=== PATIENT | male | born 1990 | race Caucasian/White ===

== ENCOUNTER 2020-10-02 14:25 | Outpatient (REF) | payer MEDICAID, SELFPAY ==
[2020-10-02 15:38] LABS: COVID-19 Test Negative (Negative)
== END 2020-10-02 14:26 | disposition home or self-care (01) ==
LOC: HO.LAB 14:25
PROVIDERS: Visit Provider Internal Medicine
DX: Z20.822 Contact with and (suspected) exposure to COVID-19 (principal)
CPT/HCPCS: 36415; 87635; C9803

== ENCOUNTER 2020-12-09 13:13 | Emergency (ER) | payer OTHER, MEDICAID, SELFPAY ==
[2020-12-09 13:17] VITALS: BP 176/81; PULSE 87; RESP 16; TEMP 36.5; O2SAT 97; BMI 28.7
--- NOTE | 2020-12-09 14:56 | ED_ITS ---
HPI - Back Pain/Injury General Chief Complaint: Back Pain/Injury Stated Complaint: back pain Time Seen by Provider: 12/09/20 14:44 Source: patient Mode of arrival: ambulatory History of Present Illness HPI Narrative: 30-year-old male with no significant past medical history presenting to the ED complaining of acute onset right-sided low back pain radiating down right buttock x3 days s/p heavy lifting at work. Admits to taking Tylenol at home without relief. Denies direct injury/trauma or falls. Denies associated numbness, tingling, weakness, urinary incontinence or retention MD elicited complaint: back pain and back injury Related Data Previous Rx's Medication Instructions Recorded acetaminophen [Tylenol Extra 500 mg PO Q6H PRN #20 tab 12/09/20 Strength] cyclobenzaprine 5 mg PO Q8H PRN 5 Days #14 tab 12/09/20 lidocaine [Lidoderm] 1 patch TOPICAL DAILY PRN #30 ea 12/09/20 MDD remove after 12 hours Allergies Allergy/AdvReac Type Severity Reaction Status Date / Time aspirin [ASA] Allergy Mild REDNESS, Unverified 03/07/20 19:33 SWELLING Review of Systems Review of Systems: Constitutional: No Fever, No Chills Cardiovascular: No Chest Pain, No SOB Genitourinary: No Urinary Incontinence/retention Musculoskeletal: + joint pain, No Myalgias, No Joint Swelling Skin: No Skin Lesions, No rash Neuro: No Weakness, No Numbness, No Paresthesias Yes all other systems are reviewed and are negative Neurologic: Denies Sensory deficit (Neuro) FORMERLY [facility], [facility]–1983 Past Medical History Attestation statement: The following information was validated with the patient. Medical History (Updated 12/09/20 @ 14:56 by DELIA Jones) No known health problems Social History Social History Advance Directives: Yes Advance Directives Information Provided: Yes Advance Directives on File: No Physical Exam Vital Signs: Vital Signs: Last Vital Signs Temp 97.7 F 12/09/20 13:17 Pulse 87 12/09/20 13:17 Resp 16 12/09/20 13:17 BP 176/81 H 12/09/20 13:17 Pulse Ox 97 12/09/20 13:17 Body Mass Index 28.7 Const: General: cooperative and healthy appearing Orientation/consciousness: patient oriented x3 Limitations: no limitations HENMT: Head: Yes normal to inspection Ears: hearing grossly normal bilater ally General nose exam: Normal external nose present Face and sinus: Yes normal facial exam Eyes: General: appearance normal, both eyes and all related structures EOM: EOMs intact bilaterally Neck: Neck: Yes normal visual inspection and Yes no meningeal signs Resp: Effort & Inspection: normal respiratory effort Cardio: Rate: regular rate Back/Spine/Pelvis: Other: No midline thoracic/lumbar spinous tenderness or step-off/deformity Skin: Rashes: no rashes Wounds: no wounds Neuro: Other: No saddle anesthesia. Ambulating with steady gait. Strength intact throughout General: patient oriented x3, gait normal, tone normal, moves all extremities and no meningeal signs Gait exam (Neuro): Normal gait present Motor exam (neuro): 5/5 motor strength present throughout Sensory Exam: No Sensory deficit (Neuro) Extrem: General: Yes normal to inspection MDM - Back Pain/Injury MDM Narrative Medical decision making narrative: 30-year-old male with no significant past medical history presenting to the ED complaining of acute onset right-sided low back pain radiating down right buttock x3 days s/p heavy lifting at work. On exam vital signs stable, NAD, well appearing, no midline spinous tenderness throughout, no red flag symptoms, no saddle anesthesia, ambulating with steady gait. Likely MSK pain/strain or muscle spasming. Low concern for cauda equina, cord compression or fracture/dislocation. Discharge Plan Discharge Clinical Impression: Lumbar radiculopathy, Strain of lumbar region Patient Disposition: Home, Self-Care Instructions: Acute Low Back Pain (ED) Additional Instructions: Your pain is likely musculoskeletal Flexeril is a muscle relaxer, take at night as it makes you drowsy, do not drive, drink alcohol, or operate machinery while taking it Lidoderm patches are numbing patches, apply to painful area In addition take Tylenol at home If symptoms persist or worsen, pain becomes unbearable, you developed urinary retention or incontinence, or weakness return to the ED Es probable que corbett dolor sea musculoesquel?becky Flexeril es un relajante muscular, t?clarke por la noche ya que le produce somnolencia, no conduzca, no grace alcohol ni utilice maquinaria mientras lo t lamine. Los parches de Lidoderm son parches que adormecen, se aplican al ?vira dolorida Adem?s, tome Tylenol en casa. Si los s?ntomas persisten o empeoran, el dolor se vuelve insoportable, desarroll? retenci?n urinaria o incontinencia o debilidad, regrese al servicio de urgencias Prescriptions: New acetaminophen [Tylenol Extra Strength] 500 mg tablet 500 mg PO Q6H PRN (Reason: pain or fever) Qty: 20 RF: 0 lidocaine [Lidoderm] 5 % adhesive patch,medicated 1 patch topical DAILY MDD remove after 12 hours PRN (Reason: pain) Qty: 30 RF: 0 cyclobenzaprine 5 mg tablet 5 mg PO Q8H PRN (Reason: pain (scale score 7-10)) 5 Days Qty: 14 RF: 0 Referrals: Rowena Roy MD [Primary Care Provider] - 2 days Stand Alone Forms: Work/School Release
== END 2020-12-09 15:23 | disposition home or self-care (01) ==
PROVIDERS: Emergency Provider Emergency Medicine; PCP Family Medicine
DX: S39.012A Strain of muscle, fascia and tendon of lower back, initial encounter (principal); M54.16 Radiculopathy, lumbar region; X50.0XXA Overexertion from strenuous movement or load, initial encounter; Y93.9 Activity, unspecified; Y92.89 Other specified places as the place of occurrence of the external cause; Y99.0 Civilian activity done for income or pay
CPT/HCPCS: 99283

== ENCOUNTER 2021-03-03 10:12 | Outpatient (REF) | payer MEDICAID, SELFPAY | END 2021-03-03 10:13 | disposition home or self-care (01) | LOC: HO.LAB 10:12 | PROVIDERS: PCP Family Medicine; Visit Provider Internal Medicine | DX: Z20.822 Contact with and (suspected) exposure to COVID-19 (principal) | CPT/HCPCS: C9803; U0003; U0005 ==

== ENCOUNTER 2021-06-17 08:31 | Outpatient (REF) | payer MEDICAID, SELFPAY | END 2021-06-17 08:32 | disposition home or self-care (01) | LOC: HO.LAB 08:31 | PROVIDERS: Visit Provider Internal Medicine | DX: Z20.822 Contact with and (suspected) exposure to COVID-19 (principal) | CPT/HCPCS: C9803; U0003; U0005 ==

== ENCOUNTER 2021-08-13 08:10 | Emergency (ER) | payer MEDICAID, SELFPAY ==
[2021-08-13 08:28] VITALS: BP 138/90; PULSE 85; RESP 18; TEMP 36.4; O2SAT 98; BMI 32.1
--- NOTE | 2021-08-13 09:29 | ED.NECK ---
HPI - Neck Pain/Injury General Chief Complaint: Neck Pain/Injury Stated Complaint: Upper back pain/shoulder pain Time Seen by Provider: 08/13/21 09:22 Source: patient Mode of arrival: ambulatory Limitations: language barrier (Pashto-speaking) History of Present Illness HPI Narrative: 31-year-old male presenting to the ED with complaints of a traumatic left-sided neck pain that he woke up with this morning. He denies any other symptoms related to this. He denies any IV drug usage. He denies any recent falls or trauma. MD complaint: neck pain Onset (ago): hour(s) Place: home Radiation: left lateral Severity: moderate and constant Quality: aching and spasming Duration: constant Relieving factors: none Exacerbating factors: movement of neck Context: unknown Associated symptoms: none Treatments prior to arrival: none Related Data Previous Rx's Medication Instructions Recorded acetaminophen 500 mg tablet 500 mg PO Q6H PRN #20 tab 12/09/20 (Tylenol Extra Strength) cyclobenzaprine 5 mg tablet 5 mg PO Q8H PRN 5 Days #14 tab 12/09/20 lidocaine 5 % topical patch 1 patch TOPICAL DAILY PRN #30 ea 12/09/20 (Lidoderm) MDD remove after 12 hours acetaminophen 500 mg tablet 1,000 mg PO Q6H PRN #14 tab 08/13/21 (Tylenol Extra Strength) diazepam 10 mg tablet (Valium) 10 mg PO Q8H PRN #14 tab 08/13/21 lidocaine HCl 4 % topical cream 1 appl TOPICAL BID PRN #120 g 08/13/21 (Aspercreme (lidocaine HCl)) Allergies Allergy/AdvReac Type Severity Reaction Status Date / Time aspirin [ASA] Allergy Mild REDNESS, Unverified 03/07/20 19:33 SWELLING Review of Systems Review of Systems: Constitutional : No trauma, No Weight loss, No Fever, No Chills, ENT/Mouth : No Hearing loss, No Ear Pain, No Nasal Congestion, No Sinus Pain, No Hoarseness, No sore throat, No Rhinorrhea, No Swallowing Difficulty Cardiovascular : No Chest Pain, No SOB Respiratory : No Cough, No Dyspnea Gastrointestinal : No Nausea, No Vomiting, No Diarrhea, No abdominal Pain, No Hematochezia, No Melena Genitourinary : No Dysuria, No Urinary Frequency, No Hematuria, No Urinary or Bowel Incontinence/retention Musculoskeletal : + Neck pain, No Back pain, No joint stiffness, No joint swelling Skin : No Skin Lesions, No rash or signs of infection Neuro : nO Tingling to b/l arms/legs, No Weakness, No radiation, No Numbness, No headache, no loss of bowel or bladder incontinence, no saddle anesthesia Denies history of IV drug usage. Yes all other systems are reviewed and are negative [facility] Past Medical History Attestation statement: The following information was validated with the patient. Medical History No known health problems Social History Social History Advance Directives: No Advance Directives Information Provided: No Physical Exam Vital Signs: Vital Signs: Last Vital Signs Temp 97.5 F 08/13/21 08:28 Pulse 85 08/13/21 08:28 Resp 18 08/13/21 08:28 BP 138/90 H 08/13/21 08:28 Pulse Ox 98 08/13/21 08:28 BMI result Body Mass Index 32.1 vital signs have been reviewed as normal and appeared to be correct. Blood pressure normal. Heart rate normal. Respiration rate normal. Temperature normal. Oxygen saturation normal. Appearance: Alert. Oriented X3. No acute distress. Head: Normal external exam. Normocephalic. Atraumatic. Eyes: PERRLA. EOMI. Conjunctiva and sclera normal. Eyelids normal. ENT: Pharynx normal. Uvula midline. Moist mucous membranes. No trismus noted. No drooling noted. No muffled voice noted. Neck: Normal inspection. Neck supple. FROM. No adenopathy. Thyroid Normal. Trachea midline. No meningeal signs. No neck mass noted. Tender to palpation of left paracervical musculature. No mid-cervical tenderness. No step-offs or deformities noted. Patient neuro intact bilaterally and distally on all 4 extremities. Reflexes intact bilaterally and distally in all 4 extremities. No rashes/lesion/induration/fluctuance or signs of infection noted. No edema noted. CVS: Normal heart rate and rhythm. Heart sound normal. No murmurs noted. Pulses normal throughout. Respiratory: No respiratory distress. Painless inspiration. Breath sounds normal. No wheezes/rales/rhonchi noted. Chest nontender. No accessory muscle usage noted or decreased air movement noted. Back: Full range of motion noted. No obvious deformities, or edema. Full ROM in back and lower extremities. Skin: Skin warm and dry. Normal skin color. Normal skin turgor. No rashes/lesions/lacerations noted. Extremities: Extremities exhibit normal range of motion. Extremities nontender. Neuro: Oriented X 3. No motor deficit. No sensory deficit. Reflexes normal. Normal steady gait. Course Course Course Narrative: Pt c likely muscular pain, but could be herniated disc. Neuro exam shows no deficits. Not c/w vascular etiology, perivertebral / other soft tissue neck / airway infection, or spinal fx / process. Imaging not currently indicated. DC c meds and f/u patient understands agrees with this plan. MDM - Neck Pain/Injury Medical Records Attestation: I reviewed the patient's medical records. Discharge Plan Discharge Clinical Impression: Strain of neck muscle, Torticollis Patient Disposition: Home, Self-Care Instructions: Cervical Strain (DC) Prescriptions: New diazepam [Valium] 10 mg tablet 10 mg PO Q8H PRN (Reason: muscle spasm) Qty: 14 0RF acetaminophen [Tylenol Extra Strength] 500 mg tablet 1,000 mg PO Q6H PRN (Reason: pain) Qty: 14 0RF lidocaine HCl [Aspercreme (lidocaine HCl)] 4 % cream 1 appl topical BID PRN (Reason: pain) Qty: 120 0RF No Action acetaminophen [Tylenol Extra Strength] 500 mg tablet 500 mg PO Q6H PRN (Reason: pain or fever) Qty: 20 0RF lidocaine [Lidoderm] 5 % adhesive patch,medicated 1 patch topical DAILY MDD remove after 12 hours PRN (Reason: pain) Qty: 30 0RF Rx Instructions: leave on most painful area for up to 12 hrs cyclobenzaprine 5 mg tablet 5 mg PO Q8H PRN (Reason: pain (scale score 7-10)) 5 Days Qty: 14 0RF Referrals: Rowena Roy MD [Primary Care Provider] - 2 days Stand Alone Forms: Work/School Release Print Language: Pashto
== END 2021-08-13 09:45 | disposition home or self-care (01) ==
PROVIDERS: Emergency Provider Emergency Medicine; PCP Family Medicine
DX: S16.1XXA Strain of muscle, fascia and tendon at neck level, initial encounter (principal); X50.1XXA Overexertion from prolonged static or awkward postures, initial encounter; M43.6 Torticollis; Y93.84 Activity, sleeping; Y92.013 Bedroom of single-family (private) house as the place of occurrence of the external cause; Y99.9 Unspecified external cause status
CPT/HCPCS: 99283

== ENCOUNTER 2021-09-16 12:19 | Emergency (ER) | payer MEDICAID, SELFPAY ==
[2021-09-16 14:08] VITALS: BP 152/80; PULSE 80; RESP 18; TEMP 36.6; O2SAT 99; BMI 30.4
--- NOTE | 2021-09-16 15:37 | ED.URI ---
HPI - URI/Sore Throat General Chief Complaint: Headache Stated Complaint: headaches/throat pain/congestion Time Seen by Provider: 09/16/21 15:30 Source: patient Mode of arrival: ambulatory Limitations: language barrier (Ethiopian-speaking spanish medical interpreter utilized) History of Present Illness HPI Narrative: Patient is a 31-year-old male no significant past medical history apart he presents to the emergency department for evaluation of diffuse headache, sinus pressure, nasal congestion, and sore throat x2 days. Denies any contacts. Denies known exposure to COVID-19. He has been vaccinated x2 for COVID-19. Denies fevers, chills, ear pain, cough, shortness of breath, chest pain, palpitations, nausea, vomiting, abdominal pain. Related Data Previous Rx's Medication Instructions Recorded acetaminophen 500 mg tablet 500 mg PO Q6H PRN #20 tab 12/09/20 (Tylenol Extra Strength) cyclobenzaprine 5 mg tablet 5 mg PO Q8H PRN 5 Days #14 tab 12/09/20 lidocaine 5 % topical patch 1 patch TOPICAL DAILY PRN #30 ea 12/09/20 (Lidoderm) MDD remove after 12 hours acetaminophen 500 mg tablet 1,000 mg PO Q6H PRN #14 tab 08/13/21 (Tylenol Extra Strength) diazepam 10 mg tablet (Valium) 10 mg PO Q8H PRN #14 tab 08/13/21 lidocaine HCl 4 % topical cream 1 appl TOPICAL BID PRN #120 g 08/13/21 (Aspercreme (lidocaine HCl)) amoxicillin 500 mg capsule 500 mg PO Q12H 10 Days #20 cap 09/16/21 amoxicillin 500 mg capsule 500 mg PO Q12H 10 Days #20 cap 09/16/21 Allergies Allergy/AdvReac Type Severity Reaction Status Date / Time aspirin [ASA] Allergy Mild REDNESS, Verified 09/16/21 17:30 SWELLING Review of Systems Review of Systems: Constitutional: No weight loss, fever, chills, weakness or fatigue. HEENT: No visual loss, blurred vision, double vision or yellow sclera. Positive nasal congestion, positive sore throat. Skin: No rash or itching. Cardiovascular: No chest pain, chest pressure or chest discomfort. No palpitations or pedal edema. Respiratory: No shortness of breath, cough or sputum production. Gastrointestinal: No anorexia, nausea, vomiting or diarrhea. No abdominal pain. Genitourinary: No burning micturition. No urinary frequency or incontinence. Neurologic: Positive headache. No dizziness, syncope, unilateral weakness. Musculoskeletal: No muscle pain, back pain, joint pain or stiffness. Hematologic: No bleeding or bruising. Lymphatics: No enlarged lymph nodes. Yes all other systems are reviewed and are negative PMFSH Past Medical History Attestation statement: The following information was validated with the patient. Source: old records reviewed Medical History No known health problems Social History Social History Advance Directives: No Advance Directives Information Provided: No Physical Exam Vital Signs: Vital Signs: Last Vital Signs Temp 97.8 F 09/16/21 14:08 Pulse 80 09/16/21 14:08 Resp 18 09/16/21 14:08 BP 152/80 H 09/16/21 14:08 Pulse Ox 99 09/16/21 14:08 BMI result Body Mass Index 30.4 Vital signs have been reviewed and appeared to be correct. Blood pressure mildly elevated 152/80 Heart rate normal.? Respiration rate normal. Temperature normal.? Oxygen saturation normal. Appearance: Alert.?Oriented to person, place and time. No acute distress.?Normal affect. Eyes: Pupils equal, round and reactive to light.? ENT: EAC clear bilaterally. TM normal. Tonsillar hypertrophy 3+ bilaterally, pharynx injected, no exudate, uvula midline, no trismus, no hoarseness of voice Neck: Normal inspection.? Neck supple.??No adenopathy. Thyroid normal. CVS: Heart sounds normal. Normal heart rate and rhythm.? Pulses normal.?? Respiratory: No respiratory distress.? Lung sounds clear to auscultation bilaterally?? Abdomen: Soft and non-tender. ? Skin: Skin warm and dry.? Normal skin color.? ?? Extremities: No lower extremity edema.? Neuro: Moves all extremities spontaneously. Sensation intact bilaterally. No focal neuro deficits. Ambulates with normal steady gait. Course Course Course Narrative: Patient is a 31-year-old male being evaluated for upper respiratory symptoms. He is well appearing, non toxic, afebrile, no tachycardia. This seemed to have some discomfort, notable when swallowing. He is managing secretions appropriately, no apparent respiratory distress. Not consistent with peritonsillar abscess, bronchitis, pneumonia, otitis media. Will treat with Tylenol for pain. COVID-19 testing negative, influenza testing negative, Strep Grp A testing negative. 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 Patient is agreeable. MDM - URI/Sore Throat Medical Records Attestation: I reviewed the patient's medical records. Lab Data Attestation: I reviewed the patient's lab results. Labs: Lab Results 09/16/21 09/16/21 09/16/21 Range/Units 16:04 16:04 16:05 COVID-19 (MELONIE) Negative (Negative) COVID-19 Clin Com See Note Influenza Type A (LEONEL) Negative (Negative) Influenza Type B (LEONEL) Negative (Negative) Influenza A & B Note See Note S. pyogenes GrpA LEONLE Negative (Negative) Discharge Plan Discharge Clinical Impression: Pharyngitis Patient Disposition: Home, Self-Care Instructions: Pharyngitis (ED) Additional Instructions: Please complete the entire course of the amoxicillin prescribed. Please return for any return to the emergency department any new or worsening symptoms or concerns. Please contact your primary care provider to schedule a follow-up visit within 1 week. Prescriptions: New amoxicillin 500 mg capsule 500 mg PO Q12H 10 Days Qty: 20 0RF amoxicillin 500 mg capsule 500 mg PO Q12H 10 Days Qty: 20 0RF No Action acetaminophen [Tylenol Extra Strength] 500 mg tablet 500 mg PO Q6H PRN (Reason: pain or fever) Qty: 20 0RF lidocaine [Lidoderm] 5 % adhesive patch,medicated 1 patch topical DAILY MDD remove after 12 hours PRN (Reason: pain) Qty: 30 0RF Rx Instructions: leave on most painful area for up to 12 hrs cyclobenzaprine 5 mg tablet 5 mg PO Q8H PRN (Reason: pain (scale score 7-10)) 5 Days Qty: 14 0RF diazepam [Valium] 10 mg tablet 10 mg PO Q8H PRN (Reason: muscle spasm) Qty: 14 0RF acetaminophen [Tylenol Extra Strength] 500 mg tablet 1,000 mg PO Q6H PRN (Reason: pain) Qty: 14 0RF lidocaine HCl [Aspercreme (lidocaine HCl)] 4 % cream 1 appl topical BID PRN (Reason: pain) Qty: 120 0RF Stand Alone Forms: Work/School Release Interventions: ED Discharge Assessment Last Done: 09/16/21 17:30 Discharge Date/Time: 09/16/21 17:35
[2021-09-16] MEDS: Acetaminophen 325 MG TABLET 975 MG PO (15:46)
[2021-09-16 16:24] LABS: Strep A Nucleic Acid Negative (Negative)
[2021-09-16 16:26] LABS: IDNOW Serial# 08D9AD1C; Influenza A Negative (Negative); Influenza B2 Negative (Negative)
[2021-09-16 16:30] LABS: COVID-19 Test Negative (Negative)
== END 2021-09-16 17:35 | disposition home or self-care (01) ==
PROVIDERS: Nurse Practitioner Family; Emergency Provider Emergency Medicine
DX: J02.9 Acute pharyngitis, unspecified (principal); R51.9 Headache, unspecified; Z79.899 Other long term (current) drug therapy; Z20.822 Contact with and (suspected) exposure to COVID-19
CPT/HCPCS: 87502; 87635; 87651; 99283

== ENCOUNTER 2022-01-26 07:52 | Outpatient (REF) | payer MEDICAID, SELFPAY ==
--- NOTE | ~2022-01-26 | XR_ITS ---
EXAMINATION: XR SHOULDER, RIGHT CLINICAL INFORMATION: Pain COMPARISON: None TECHNIQUE: 3 views of the right shoulder. FINDINGS: The bones and soft tissues are normal. No fracture. Glenohumeral and acromioclavicular alignment is anatomic with normal joint space. No abnormal soft tissue calcifications. XR/XR shoulder RT min 2V IMPRESSION: Normal right shoulder.
== END 2022-01-26 07:53 | disposition home or self-care (01) ==
LOC: HO.HOSX 07:52
PROVIDERS: Visit Provider Physician Assistant
DX: S43.101A Unspecified dislocation of right acromioclavicular joint, initial encounter (principal)
CPT/HCPCS: 20605; 73030; 99202; J1100

== ENCOUNTER → 2022-01-27 14:07 | Outpatient (BNVA) | payer MEDICAID, SELFPAY | PROVIDERS: PCP Registered Nurse Community Health; Referring Provider Registered Nurse Community Health; Visit Provider Internal Medicine | DX: Q21.1 Atrial septal defect (principal); I10 Essential (primary) hypertension; R06.02 Shortness of breath; R93.1 Abnormal findings on diagnostic imaging of heart and coronary circulation | CPT/HCPCS: 93005; 99202 ==

== ENCOUNTER → 2022-03-04 07:58 | Outpatient (REF) | payer MEDICAID, SELFPAY ==
--- NOTE | 2022-03-04 08:01 | CA_ITS ---
Transthoracic Echocardiogram Patient (Last, First, Middle): Yohannes Fiore R Gender: Male Date of : 1990 Age: 31 Procedure Date: 03/04/2022 Procedure Type: Transthoracic Echocardiogram Location: OP Height: 170.18 cm Weight: 92.53 kg BSA: 2.04 m2 Heart Rate: 72 bpm BP: 130 / 100 mmHg Gamer: JERRY Longoria MD: Navid Sanon MD Principal Planner: Sudhir Francisco MD Symptoms: Q21.1 - Atrial septal defect Study Quality: Fair ECG Rhythm: Sinus Conclusions: - 1. Low normal LV systolic function with LVEF of 50-55% 2. Normal cardiac valvular Doppler 3. No gross pericardial effusion Findings Left Ventricle Normal left ventricular cavity size. There is normal left ventricular wall thickness. The left ventricular systolic function is low normal. The visually estimated ejection fraction is between 50-55%. Diastolic function is normal for age. Right Ventricle Normal right ventricular cavity size and systolic function. Atria Both atria are normal in size. Interatrial shunt cannot be excluded. Aortic Valve Normal aortic valve structure and function. There is no aortic valve stenosis. There is no aortic valve regurgitation. Mitral Valve Normal mitral valve structure and function. There is trace mitral valve regurgitation. There is no mitral valve stenosis. Pulmonic Valve The pulmonic valve was not well visualized. Tricuspid Valve Likely normal tricuspid valve structure and function. Tricuspid regurgitation envelope is inadequate for calculation of right ventricular systolic pressure. Normal right atrial pressure. Great Vessels All visible segments of the aorta are normal in size. The pulmonary artery was not well visualized. Venous The inferior vena cava is normal in size and collapses greater than 50% with inspiration. Pericardium/Pleural There is no evidence of pericardial effusion. Prior Study Comparison No prior study available for comparison. Recommendations, Care & Conclusions Recommend contrast study to evaluate intracardiac shunting. Measurements 2D Linear Measurements IVSd: 0.88 0.6-0.9/0.6-1.0 cm LVIDd: 4.51 3.9-5.3/4.2-5.9 cm LVIDd Index: 2.21 2.4-3.2/2.2-3.1 cm/m2 LVIDs: 2.96 2.0-3.6 cm LVPWd: 1.33 0.7-1.1 cm LA Diam: 3.30 2.7-3.8/3.0-4.0 cm LAIDs Index: 1.62 1.5-2.3 cm/m2 LV Mass: 220.76 67-162/88-224 g LV Mass Index: 108.22 43-95/49-115 g/m2 LVOT Diam: 1.90 3.0+(-)1.3 cm 2D Systolic Function EF 4C: 47.30 >55% EF 2C: 52.10 >55% Mitral Valve MV Pk E: 0.67 MV PK A: 0.55 MV Decel Time: 228.00 E/A: 1.20 E'Lateral: 10.80 E'Medial: 8.70 E/E' Med: 7.70 E/E' Lat: 6.20 PHT: 67.00 MVA PHT: 3.28 Decel Lanier: 2.95 Aortic Valve AoV Pk Harinder: 1.24 AoV Mn Harinder: 0.90 AoV VTI: 0.24 AoV Pk Grad: 6.00 Aov Mn Grad: 4.00 JUAN Cont.VTI: 2.32 LVOT LVOT Pk Harinder: 1.07 LVOT Mn Harinder: 0.75 LVOT VTI: 0.20 LVOT Pk Grad: 5.00 LVOT Mn Grad: 3.00 LVOT Diam: 1.90 LVOT Area: 2.84 Diastolic Function MV Pk E: 0.67 MV Pk A: 0.55 E/A: 1.20 E'Medial: 8.70 E/E' Med: 7.70 E' Laterial: 10.80 E/E' Lat: 6.20 Right Ventricle TAPSE (mm): 19.30 TVS' Harinder: 11.00 Tricuspid Valve RA Press: 3.00 Great Vessels Aorta Sinus of Valsalva: 2.90 2.0-3.5 cm Ao Asc: 2.60 2.1-3.4 cm Pulmonary Valve PV Pk Harinder: 1.03 Peak PV Grad: 4.00 Updated in Other Vendor System with Status of Final Sudhir Francisco MD electronically signed on 03/05/2022 9:02:22 AM with status of Final
== END ==
LOC: HO.CARD 07:58
PROVIDERS: PCP Registered Nurse Community Health; Visit Provider Internal Medicine
DX: Q21.1 Atrial septal defect (principal)
CPT/HCPCS: 93306

== ENCOUNTER → 2022-03-27 07:30 | Outpatient (REF) | payer MEDICAID, SELFPAY | LOC: HO.CARD 07:30 | PROVIDERS: Visit Provider Internal Medicine | DX: Q21.10 Atrial septal defect, unspecified (principal) | CPT/HCPCS: 93308 ==

== ENCOUNTER 2022-04-13 19:09 | Emergency (ER) | payer MEDICAID, SELFPAY ==
[2022-04-13 20:32] VITALS: BP 174/105; PULSE 98; RESP 20; TEMP 37.1; O2SAT 96; BMI 32.1
[2022-04-13 20:54] LABS: COVID-19 Test Negative (Negative); IDNOW Serial# 16C4AD1C
--- NOTE | 2022-04-13 22:34 | ED_ITS ---
HPI - URI/Sore Throat General Chief Complaint: Upper Respiratory Symptoms Stated Complaint: sore throat,headache,congestion, chest pain Time Seen by Provider: 04/13/22 22:33 Source: patient Mode of arrival: ambulatory Limitations: no limitations History of Present Illness HPI Narrative: 32 yo mlae iwth history of HTN, ASD, who presents to the ER for evaluation of URI symptoms that started yesterday. He states he woke up with a headache, nasal congestion, dry cough and sore throat. He had a brief episode of a bloody nose out of his left nare earlier today after he blew his nose. He denies any fevers but has had some chills and body aches. He states his head pressure is the worst part. He denies any sick contacts. No abdominal pain, chest pain or difficutly breathing. MD elicited complaint: cough, sore throat and nasal congestion Onset (ago): day(s) (1) Consistency: progressively worsening Severity: moderate Description of mucous: clear and watery Able to tolerate fluids by mouth: Yes Exacerbating factors: changing head position Relieving factors: nothing Associated symptoms: chills, myalgias, headache, nasal congestion, sore throat and cough Treatments prior to arrival: none Related Data Home Medications Medication Instructions Recorded Confirmed lisinopril 10 mg tablet 10 mg PO DAILY 01/27/22 01/27/22 Previous Rx's Medication Instructions Recorded oseltamivir 75 mg capsule (Tamiflu) 75 mg PO BID 5 days #10 caps 04/13/22 Allergies Allergy/AdvReac Type Severity Reaction Status Date / Time aspirin [ASA] Allergy Mild REDNESS, Verified 09/16/21 17:30 SWELLING Review of Systems Review of Systems: Constitutional: No Fever, + Chills ENT/Mouth: + sore throat, + Rhinorrhea, No Swallowing Difficulty, +Nasal congestion, +epistaxis Eyes: No Eye Pain, No Swelling, No Redness Cardiovascular: No Chest Pain, No SOB Respiratory: + Cough, No Sputum, No Wheezing, No dyspnea Gastrointestinal: No Nausea, No Vomiting, No abdominal Pain Musculoskeletal: No joint pain, + Myalgias Skin: No Skin Lesions, No rash Neuro: No Weakness, No Numbness, No Dizziness, + Headache Heme/Lymph: No Bruising, No Lymphadenopathy PMFSH Past Medical History Medical History (Updated 04/13/22 @ 23:32 by DELIA Au) Essential hypertension No known health problems Shortness of breath Surgical History (Updated 01/27/22 @ 14:45 by VITOR Aguilera) No pertinent past surgical history Family History Family History (Updated 01/27/22 @ 14:45 by VITOR Aguilera) Father No problems noted. Mother No problems noted. Social History Social History (Updated 01/27/22 @ 14:45 by VITOR Aguilera) Alcohol intake: never Patient Tobacco Use Status: Never used Tobacco Use of substances other than those prescribed or required for medical reasons: No Advance Directives: No Physical Exam Vital Signs: Vital Signs: Last Vital Signs Temp 98.0 F 04/13/22 23:39 Pulse 90 04/13/22 23:39 Resp 14 04/13/22 23:39 BP 161/92 H 04/13/22 23:39 Pulse Ox 97 04/13/22 23:39 O2 Del Method 04/13/22 23:39 BMI result Body Mass Index 32.1 Appearance: Alert. Oriented X3. No acute distress. Eyes: Pupils equal, round and reactive to light. ENT: Pharynx normal. No active epistaxis, no blood clots. Clear nasal discharge. Neck: Normal inspection. Neck supple. CVS: Normal heart rate and rhythm. Pulses normal. Respiratory: No respiratory distress. Breath sounds normal. Abdomen: Soft and nontender. +BS x4 Skin: Skin warm and dry. Normal skin color. Normal skin turgor. No rashes. Extremities: No lower extremity edema. Neuro: Oriented X 3. Nonfocal. Course Course Course Narrative: 32 yo male presents to the ER for URI symptoms since yesterday. Hypertensive 170/100 on arrival. Afebrile and saturating 97% on RA. Hx HTN. No chest pain or vision changed. COVID is negative. Will check flu, treat his headache and repeat BP. Reevaluation(s) Reevaluation #1: Patient found to have influenza B. he is in the treatment window for Tamiflu. Will get that started today. His blood pressure improved with treatment of his headache. He was counseled on his diagnosis and management. He is stable for discharge home with Tamiflu, supportive care. Work note provided. MDM - URI/Sore Throat Lab Data Labs: Lab Results 04/13/22 04/13/22 Range/Units 20:36 23:10 COVID-19 (MELONIE) Negative (Negative) COVID-19 Clin Com See Note Influenza Type A (LEONEL) Negative (Negative) Influenza Type B (LEONEL) Positive A (Negative) Influenza A & B Note See Note Discharge Plan Discharge Clinical Impression: Influenza B Patient Disposition: Home, Self-Care Instructions: Influenza (ED) Additional Instructions: You tested positive for influenza B today. Take the prescribed antiviral medication to help shorten the duration of your illness. Take qysn-lus-ihwpshd cold and flu medications as needed for your symptoms. Rest and drink plenty of fluids Do not go to work or not feeling well. Your blood pressure was elevated today. Make sure you follow-up with your primary care doctor. Make sure taking all your medications as directed. If you develop new or worsening symptoms call 911 or come back to the ER for further evaluation. Usted indy positivo por influenza B hoy. [place] el medicamento antiviral recetado para ayudar a acortar la duraci?n de [place] enfermedad. [place] medicamentos de venta bulmaro para el resfriado y la gripe seg?n sea necesario para audra s?ntomas. Descansar y beber muchos l?quidos No va a trabajar o no se siente maciej. [place] presi?n arterial se elev? hoy. Aseg?rese de hacer un seguimiento con [place] m?dico de atenci?n primaria. Aseg?rese de alvin todos audra medicamentos seg?n las indicaciones. Si desarrolla s?ntomas nuevos o que empeoran, llame al 911 o regrese a la lucretia de emergencias para demario evaluaci?n adicional. Prescriptions: New oseltamivir [Tamiflu] 75 mg capsule 75 mg PO BID 5 Days Qty: 10 0RF No Action lisinopril 10 mg tablet 10 mg PO DAILY Stand Alone Forms: Work/School Release Print Language: Georgian
[2022-04-13] MEDS: Ibuprofen 600 MG TABLET PO (23:04)
[2022-04-13] MEDS: Acetaminophen 325 MG TABLET 975 MG PO (23:04)
[2022-04-13 23:30] LABS: Influenza A Negative (Negative); Influenza B2 Positive (Negative)
[2022-04-13 23:39] VITALS: BP 161/92; PULSE 90; RESP 14; TEMP 36.7; O2SAT 97
[2022-04-14] MEDS: Oseltamivir Phosphate 75 MG CAPSULE PO (00:14)
--- NOTE | 2022-04-14 00:19 | PC.NURSE ---
pt pwd and ambulatory at time of discharge. pt provided with work note and discharge packet. pt verbalized understanding of discharge plan
== END 2022-04-14 00:21 | disposition home or self-care (01) ==
PROVIDERS: Physician Assistant; Emergency Provider Student in an Organized Health Care Education/Training Program
DX: J10.1 Influenza due to other identified influenza virus with other respiratory manifestations (principal); I10 Essential (primary) hypertension
CPT/HCPCS: 87502; 87635; 99283; 99284

== ENCOUNTER 2022-05-15 12:44 | Emergency (ER) | payer MEDICAID, SELFPAY ==
--- NOTE | ~2022-05-15 | XR_ITS ---
EXAMINATION: XR CHEST CLINICAL INFORMATION: Cough, fever COMPARISON: None TECHNIQUE: 2 views of the chest were obtained. FINDINGS: No significant abnormality is noted involving the heart, lungs, mediastinum, bony thorax or soft tissues. XR/XR chest 2V IMPRESSION: Unremarkable examination.
--- NOTE | 2022-05-15 13:53 | ED.ABDPAIN ---
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 NO vomiting, diarrhea, skin rash, neck pain/stiffness, diff breathing. had Flu B 1 month ago <Christie Gandhi NP - Last Filed: 05/15/22 16:23> Related Data Home Medications: Home Medications Medication Instructions Recorded Confirmed lisinopril 10 mg tablet 10 mg PO DAILY 01/27/22 01/27/22 Previous Rx's Medication Instructions Recorded oseltamivir 75 mg capsule (Tamiflu) 75 mg PO BID 5 days #10 caps 04/13/22 acetaminophen 325 mg tablet 650 mg PO Q4H PRN fever or pain 05/15/22 (Tylenol) #30 tabs benzonatate 200 mg capsule 200 mg PO TID PRN cough #30 caps 05/15/22 <Drea Murray CNP - Last Filed: 05/15/22 14:00> Allergies/Adverse Reactions: Allergies Allergy/AdvReac Type Severity Reaction Status Date / Time aspirin [ASA] Allergy Mild REDNESS, Verified 09/16/21 17:30 SWELLING <Drea Murray CNP - Last Filed: 05/15/22 14:00> Review of Systems Review of Systems Yes all other systems are reviewed and are negative <Christie Gandhi NP - Last Filed: 05/15/22 16:23> Constitutional: Reports no additional constitutional complaints, Reports body ache(s), Reports chills, Reports fever(s), Reports headache(s) and Denies weakness <Christie Gandhi NP - Last Filed: 05/15/22 16:23> Eyes: Reports no additional eye complaints and Denies change in vision <Christie Gandhi LUDLOW MACHINE OPERATOR - Last Filed: 05/15/22 16:23> Reports system reviewed and no additional complaints, except as documented, Denies dizziness, Reports headache(s), Denies nasal congestion, Denies nasal discharge and Denies neck pain <Christie Gandhi LUDLOW MACHINE OPERATOR - Last Filed: 05/15/22 16:23> Cardiovascular: Reports no additional cardiovascular complaints, Reports chest pain, Denies leg edema and Denies dyspnea <Christie Gandhi LUDLOW MACHINE OPERATOR - Last Filed: 05/15/22 16:23> Respiratory: Reports no additional respiratory complaints and Denies dyspnea <Christie Gandhi LUDLOW MACHINE OPERATOR - Last Filed: 05/15/22 16:23> Gastrointestinal: Reports no additional gastrointestinal complaints, Denies abdominal pain, Denies diarrhea, Denies nausea and Denies vomiting <Christie Gandhi NP - Last Filed: 05/15/22 16:23> Genitourinary: Denies urinary incontinence <Christie Gandhi LUDLOW MACHINE OPERATOR - Last Filed: 05/15/22 16:23> Musculoskeletal: Reports no additional musculoskeletal complaints, Denies back pain, Denies arthralgias, Denies joint swelling, Denies neck pain, Denies numbness and Denies tingling <Christie Gandhi LUDLOW MACHINE OPERATOR - Last Filed: 05/15/22 16:23> Skin/Breast: Reports system reviewed and no additional complaints, except as docu and Denies rash <Christie Gandhi NP - Last Filed: 05/15/22 16:23> Reports system reviewed and no additional complaints, except as documented, Denies dizziness, Reports headache(s), Denies numbness, Denies tingling and Denies weakness <Christie Gandhi NP - Last Filed: 05/15/22 16:23> PMFSH Past Medical History Attestation statement: The following information was validated with the patient. <Christie Gandhi NP - Last Filed: 05/15/22 16:23> Source: old records reviewed and nursing notes reviewed <Christie Gandhi NP - Last Filed: 05/15/22 16:23> Medical History: Medical History Essential hypertension No known health problems Shortness of breath <Drea Murray CNP - Last Filed: 05/15/22 14:00> Surgical History: Surgical History No pertinent past surgical history <Drea Murray CNP - Last Filed: 05/15/22 14:00> Family History Family History: Family History Father No problems noted. Mother No problems noted. <Drea Murray CNP - Last Filed: 05/15/22 14:00> Social History Social History: Social History Alcohol intake: never Patient Tobacco Use Status: Never used Tobacco Advance Directives: No Advance Directives Information Provided: No <Drea Murray CNP - Last Filed: 05/15/22 14:00> Physical Exam ED Vital Signs: Vital Signs - 24 hr 05/15/22 13:54 05/15/22 15:29 Temperature 101.1 F H 99.8 F Pulse Rate 123 H 114 H Respiratory Rate 18 20 Blood Pressure 179/90 H 147/100 H Pulse Oximetry 96 94 Oxygen Delivery Method Room Air Room Air BMI result Body Mass Index 32.3 <Drea Murray CNP - Last Filed: 05/15/22 14:00> Vital Signs - 24 hr 05/15/22 13:54 05/15/22 15:29 Temperature 101.1 F H 99.8 F Pulse Rate 123 H 114 H Respiratory Rate 18 20 Blood Pressure 179/90 H 147/100 H Pulse Oximetry 96 94 Oxygen Delivery Method Room Air Room Air BMI result Body Mass Index 32.3 <Christie Gandhi NP - Last Filed: 05/15/22 16:23> Const General: cooperative, healthy appearing, comfortable and no acute distress <Christie Gandhi NP - Last Filed: 05/15/22 16:23> Orientation/consciousness: patient oriented x3 <Christie Gandhi NP - Last Filed: 05/15/22 16:23> Limitations: no limitations <Christie Gandhi NP - Last Filed: 05/15/22 16:23> HENMT Head: Yes normal to inspection <Christie Gandhi NP - Last Filed: 05/15/22 16:23> Ears: hearing grossly normal bilaterally and TM's normal bilaterally <Christie Gandhi NP - Last Filed: 05/15/22 16:23> Throat: Yes posterior oropharynx normal, Yes tonsils normal and Yes uvula midline <Christie Gandhi NP - Last Filed: 05/15/22 16:23> Eyes General: appearance normal, both eyes and all related structures <Christie Gandhi NP - Last Filed: 05/15/22 16:23> Pupils: Equal, round and reactive pupils present <Christie Gandhi NP - Last Filed: 05/15/22 16:23> Neck Neck: Yes normal visual inspection, Yes full ROM, Yes no lymphadenopathy and Yes no meningeal signs <Christie Gandhi NP - Last Filed: 05/15/22 16:23> Chest Chest palpation & inspection: normal inspection of the chest <Christie Gandhi NP - Last Filed: 05/15/22 16:23> Resp Effort & Inspection: normal respiratory effort <Christie Gandhi NP - Last Filed: 05/15/22 16:23> Auscultation: clear to auscultation bilaterally <Christie Gandhi NP - Last Filed: 05/15/22 16:23> Cardio Rate: regular rate <Christie Gandhi NP - Last Filed: 05/15/22 16:23> Rhythm: regular rhythm <Christie Gandhi NP - Last Filed: 05/15/22 16:23> Peripheral pulses: Peripheral pulses 2+ throughout <Christie Gandhi LUDLOW MACHINE OPERATOR - Last Filed: 05/15/22 16:23> GI Inspection: Yes normal to inspection <Christie Gandhi NP - Last Filed: 05/15/22 16:23> Palpation (GI): Soft to palpation and nontender <Christie Gandhi LUDLOW MACHINE OPERATOR - Last Filed: 05/15/22 16:23> General: Yes no CVA tenderness <Christie Gandhi LUDLOW MACHINE OPERATOR - Last Filed: 05/15/22 16:23> Back/Spine/Pelvis Back: no CVA tenderness <Christie Gandhi LUDLOW MACHINE OPERATOR - Last Filed: 05/15/22 16:23> Thoracic/Lumbar Spine: thoracic and lumbar spine normal to inspection <Christie Gandhi LUDLOW MACHINE OPERATOR - Last Filed: 05/15/22 16:23> Skin General skin exam: no rashes or lesions noted <Christie Gandhi LUDLOW MACHINE OPERATOR - Last Filed: 05/15/22 16:23> Neuro General: patient oriented x3, moves all extremities and no meningeal signs <Christie Gandhi LUDLOW MACHINE OPERATOR - Last Filed: 05/15/22 16:23> Cranial nerves: Yes Equal, round and reactive pupils present <Christie Gandhi NP - Last Filed: 05/15/22 16:23> Cognition (Neuro): normal cognition <Christie Gandhi LUDLOW MACHINE OPERATOR - Last Filed: 05/15/22 16:23> Gait exam (Neuro): Normal gait present <Christie Gandhi NP - Last Filed: 05/15/22 16:23> Extrem General: Yes normal to inspection, Yes no pedal edema and Yes no calf tenderness <Christie Gandhi LUDLOW MACHINE OPERATOR - Last Filed: 05/15/22 16:23> Course Course Course Narrative: RME: Patient is a 32-year-old male who presents emergency department for evaluation of non-productive cough x 4 days, lateral chest and upper ABD pain. Trialed robitussin, tylenol without improvement. PE: chest wall tenderness upon palpation, no ABD tenderness. ABD Exam benign. No respiratory distress. LSCTA Plan: COVID-19/influenza/RSV testing, acetaminophen for fever. Febrile and tachycardic, meeting SIRS criteria, suspect upper respiratory virus as etiology, do not suspect bacterial infection at this time. <Drea Murray CNP - Last Filed: 05/15/22 14:00> Reevaluation(s) Reevaluation #1: INfluenza A +. No hypoxia/tachypnea. +fever/tachycardia on arrival which improved with antipyretic. Unfortunately d/t length of symptoms I do not believe tamiflu would be helpful. This was discussed with patient and plan for discharge home with supportive care. Reviewed worrisome signs/symptoms with patient and when to seek additional care. Comfortable with discharge home. <Christie Gandhi NP - Last Filed: 05/15/22 16:23> Medications Administered Discontinued Medications Generic Name Dose Route Start Last Admin Trade Name Freq PRN Reason Stop Dose Admin Acetaminophen 975 mg 05/15/22 13:54 05/15/22 13:58 Acetaminophen 325 Mg Tablet PO 05/15/22 13:55 975 mg ONCE ONE Administration <Drea Murray CNP - Last Filed: 05/15/22 14:00> Medications Administered Discontinued Medications Generic Name Dose Route Start Last Admin Trade Name Freq PRN Reason Stop Dose Admin Acetaminophen 975 mg 05/15/22 13:54 05/15/22 13:58 Acetaminophen 325 Mg Tablet PO 05/15/22 13:55 975 mg ONCE ONE Administration <Christie Gandhi NP - Last Filed: 05/15/22 16:23> MDM - Abdominal Pain MDM Narrative Medical decision making narrative: 32yo male here with 4 days of fever, chills, headache, body aches, cough, chest wall pain/upper abdominal pain with coughing. considered viral syndrome, PNA, PE (PERC 0) <Christie Gandhi NP - Last Filed: 05/15/22 16:23> Medical Records Attestation: I reviewed the patient's medical records. <Christie Gandhi NP - Last Filed: 05/15/22 16:23> Lab Data Attestation: I reviewed the patient's lab results. <Christie Gandhi NP - Last Filed: 05/15/22 16:23> Labs: Lab Results 05/15/22 Range/Units 14:01 Influenza Type A (PCR) POSITIVE A (Negative) Influenza Type B (PCR) NEGATIVE (Negative) RSV RNA Qual (PCR) NEGATIVE (Negative) SARS-CoV-2 RNA (RT-PCR) NEGATIVE (Negative) <Drea Murray CNP - Last Filed: 05/15/22 14:00> Lab Results 05/15/22 Range/Units 14:01 Influenza Type A (PCR) POSITIVE A (Negative) Influenza Type B (PCR) NEGATIVE (Negative) RSV RNA Qual (PCR) NEGATIVE (Negative) SARS-CoV-2 RNA (RT-PCR) NEGATIVE (Negative) <Christie Gandhi NP - Last Filed: 05/15/22 16:23> Discharge Plan Discharge Clinical Impression: Influenza <Drea Murray CNP - Last Filed: 05/15/22 14:00> Patient Disposition: Home, Self-Care <Drea Murray CNP - Last Filed: 05/15/22 14:00> Instructions: Influenza (ED) <Drea Murray CNP - Last Filed: 05/15/22 14:00> Additional Instructions: X-ray shows no pnuemonia Motrin or tylenol for pain or fever Increase fluids, rest <Drea Murray CNP - Last Filed: 05/15/22 14:00> Prescriptions: New benzonatate 200 mg capsule 200 mg PO TID PRN (Reason: cough) Qty: 30 0RF acetaminophen [Tylenol] 325 mg tablet 650 mg PO Q4H PRN (Reason: fever or pain) Qty: 30 0RF No Action oseltamivir [Tamiflu] 75 mg capsule 75 mg PO BID 5 Days Qty: 10 0RF lisinopril 10 mg tablet 10 mg PO DAILY <Drea Murray CNP - Last Filed: 05/15/22 14:00> Referrals: [facility] [Primary Care Provider] - 1 week <Drea Murray CNP - Last Filed: 05/15/22 14:00> Stand Alone Forms: Work/School Release <Drea Murray CNP - Last Filed: 05/15/22 14:00> Print Language: Armenian <Drea Murray SEAMARK ADVANCED OPERATOR MAINTAINER - Last Filed: 05/15/22 14:00>
[2022-05-15 13:54] VITALS: BP 179/90; PULSE 123; RESP 18; TEMP 38.4; O2SAT 96; BMI 32.3
[2022-05-15] MEDS: Acetaminophen 325 MG TABLET 975 MG PO (13:58)
[2022-05-15 14:55] LABS: Influenza A PCR POSITIVE (Negative); Influenza B PCR NEGATIVE (Negative); Resp Syncy Virus RNA Qual PCR NEGATIVE (Negative); SARS COV2 PCR INHOUSE NEGATIVE (Negative)
[2022-05-15 15:29] VITALS: BP 147/100; PULSE 114; RESP 20; TEMP 37.7; O2SAT 94
== END 2022-05-15 16:30 | disposition home or self-care (01) ==
PROVIDERS: Nurse Practitioner Family; Emergency Provider Emergency Medicine Emergency Medical Services
DX: J11.1 Influenza due to unidentified influenza virus with other respiratory manifestations (principal); R50.9 Fever, unspecified; Z20.822 Contact with and (suspected) exposure to COVID-19
CPT/HCPCS: 0241U; 71046; 99283

== ENCOUNTER 2022-12-31 14:12 | Outpatient (REF) | payer MEDICAID, SELFPAY ==
[2023-01-05 10:18] LABS: Lyme Abs Screen <0.90 index
== END 2022-12-31 14:13 | disposition home or self-care (01) ==
LOC: HO.HHCL 14:12
PROVIDERS: Visit Provider Emergency Medicine
DX: M54.2 Cervicalgia (principal)
CPT/HCPCS: 36415; 86617; 86618

== ENCOUNTER 2023-04-05 15:02 | Emergency (ER) | payer MEDICAID, SELFPAY ==
--- NOTE | ~2023-04-05 | XR_ITS ---
EXAMINATION: XR LUMBOSACRAL SPINE CLINICAL INFORMATION: Low back pain COMPARISON: None available. TECHNIQUE: Three views of the lumbosacral spine. FINDINGS: Normal variant of a transitional lumbar vertebrae. 5 nonrib-bearing lumbar vertebrae. S1 vertebrae is partially lumbarized with articulation of transverse processes bilaterally with sacral ala. Vertebrae have normal height and alignment. No fracture or subluxation. No bone destruction. Mild disc height narrowing of the L5-transitional vertebral body disc. Facet joints are normal. XR/XR lumbar spine 2-3V IMPRESSION: 1. No acute abnormality. 2. Normal variant of a transitional lumbar vertebrae. 3. Mild disc height narrowing of the L5-transitional vertebral body disc.
[2023-04-05 15:51] VITALS: BP 152/105; PULSE 74; RESP 16; TEMP 36.7; O2SAT 97; BMI 32.8
--- NOTE | 2023-04-05 15:54 | ED.GENADULT ---
HPI - General Adult General Chief complaint: Back Pain/Injury Stated complaint: low back pain Time Seen by Provider: 04/05/23 18:44 Source: patient Mode of arrival: ambulatory Limitations: no limitations History of Present Illness HPI narrative: Patients have chronic low back off and on comes here for increased pain in lower back since earlier today no recent trauma no bladder or bowel involvement no paresthesia in the lower extremity Related Data Home Medications Medication Instructions Recorded Confirmed lisinopril 10 mg tablet 10 mg PO DAILY 01/27/22 01/27/22 Previous Rx's Medication Instructions Recorded oseltamivir 75 mg capsule (Tamiflu) 75 mg PO BID 5 days #10 caps 04/13/22 acetaminophen 325 mg tablet 650 mg (2 x 325 mg) PO Q4H PRN 05/15/22 (Tylenol) fever or pain #30 tabs benzonatate 200 mg capsule 200 mg PO TID PRN cough #30 caps 05/15/22 cyclobenzaprine 10 mg tablet 10 mg PO Q8H #20 tabs 04/05/23 tramadol 50 mg tablet 50 mg PO Q6H PRN pain #20 tabs 04/05/23 Allergies Allergy/AdvReac Type Severity Reaction Status Date / Time aspirin [ASA] Allergy Mild REDNESS, Verified 09/16/21 17:30 SWELLING Review of Systems Review of Systems: Yes all other systems are reviewed and are negative [facility] Past Medical History Medical History Shortness of breath Essential hypertension No known health problems Surgical History No pertinent past surgical history Family History Family History Father No problems noted. Mother No problems noted. Social History Social History Alcohol intake: never Patient Tobacco Use Status: Never used Tobacco Advance Directives: No Advance Directives Information Provided: No Physical Exam ED Vital Signs: Vital Signs - 24 hr 04/05/23 15:51 Temperature 98.0 F Pulse Rate 74 Respiratory Rate 16 Blood Pressure 152/105 H Pulse Oximetry 97 Oxygen Delivery Method Room Air BMI result Body Mass Index 32.8 Appearance: Alert. Oriented X3. No acute distress. Eyes: PERRLA, No Nystagmus ENT: Pharynx normal. Oral Mucosa moist Neck: Normal inspection. Neck supple. CVS: Normal heart rate and rhythm. Pulses normal. Respiratory: No respiratory distress. Equal air entry bilateral, no wheezing/rales/rhonchi Abdomen: Soft and nontender. Bowel sounds are present, no mass palpable, no CVA tenderness Skin: Skin warm and dry. Normal skin color. Normal skin turgor. Extremities: No lower extremity edema. No calf tenderness back: Diffuse tenderness low no midline tenderness SLR negative bilaterally patient ambulate in steady gait Neuro: Oriented X 3. No motor deficit. No sensory deficit. Course Course Course Narrative: RME: 32 yold male presents to the ED for right sided back pain radiating right leg without any traiuma. lumbar xray and UA ordered Medications Administered Discontinued Medications Generic Name Dose Route Start Last Admin Trade Name Freq PRN Reason Stop Dose Admin Cyclobenzaprine HCl 10 mg 04/05/23 19:08 04/05/23 19:32 Cyclobenzaprine Hcl 10 Mg Tablet PO 04/05/23 19:09 10 mg ONCE ONE Administration Tramadol HCl 50 mg 04/05/23 19:08 04/05/23 19:32 Tramadol Hcl 50 Mg Tablet PO 04/05/23 19:09 50 mg ONCE ONE Administration Medical Decision Making Differential Diagnosis Differential Diagnoses: The differential diagnosis associated with the presentation includes Sciatica, chronic low back pain, lumbar strain Lab Data Labs: Lab Results 04/05/23 Range/Units 16:47 Urine Color Yellow Urine Appearance Clear Urine pH 6.0 (5.0-9.0) Ur Specific [place] >= 1.030 H (1.005-1.025) Urine Protein Trace (Neg-Trace) mg/dL Urine Glucose (UA) Negative (Negative) mg/dL Urine Ketones Negative (Negative) mg/dL Urine Blood Negative (Negative) Urine Nitrite Negative (Negative) Ur Leukocyte Esterase Negative (Negative) Radiology Impression Discussion of test interpretation with radiology: I have reviewed the radiologist's reading. Discharge Plan Discharge Clinical Impression: Strain of lumbar region Patient Disposition: Home, Self-Care Instructions: Low Back Strain (ED) Additional Instructions: Apply ice pack Take pain medication muscle relaxant as prescribed Follow-up with PCP as needed Prescriptions: New cyclobenzaprine 10 mg tablet 10 mg PO Q8H Qty: 20 0RF tramadol 50 mg tablet 50 mg PO Q6H PRN (Reason: pain) Qty: 20 0RF No Action oseltamivir [Tamiflu] 75 mg capsule 75 mg PO BID 5 Days Qty: 10 0RF benzonatate 200 mg capsule 200 mg PO TID PRN (Reason: cough) Qty: 30 0RF acetaminophen [Tylenol] 325 mg tablet 650 mg PO Q4H PRN (Reason: fever or pain) Qty: 30 0RF lisinopril 10 mg tablet 10 mg PO DAILY Stand Alone Forms: Work/School Release Interventions: ED Discharge Assessment Last Done: 04/05/23 19:39 Discharge Date/Time: 04/05/23 19:39
[2023-04-05 17:00] LABS: Appearance Urine Clear; Color Urine Yellow; Glucose Urine UA Negative (Negative); Leukocyte Esterase Urine Negative (Negative); Nitrite Urine Negative (Negative); Specific Gravity - Urine >= 1.030 (1.005-1.025); Urine Blood Negative (Negative); Urine Ketones Negative (Negative); Urine Protein Trace mg/dL (Neg-Trace)
[2023-04-05] MEDS: Cyclobenzaprine HCl 10 MG TABLET PO (19:32)
[2023-04-05] MEDS: traMADoL HCL 50 MG TABLET PO (19:32)
== END 2023-04-05 19:39 | disposition home or self-care (01) ==
PROVIDERS: Physician Assistant; Emergency Provider Internal Medicine
DX: S39.012A Strain of muscle, fascia and tendon of lower back, initial encounter (principal); X58.XXXA Exposure to other specified factors, initial encounter; Y93.9 Activity, unspecified; Y92.9 Unspecified place or not applicable; Y99.9 Unspecified external cause status; Z79.899 Other long term (current) drug therapy
CPT/HCPCS: 72100; 81003; 99283

== ENCOUNTER 2023-09-14 14:03 | Outpatient (REF) | payer MEDICAID, SELFPAY ==
[2023-09-14 16:36] LABS: Estimated Average Glucose 108 mg/dL; Hemoglobin A1c % 5.4 % (<6.0)
[2023-09-14 16:58] LABS: Alanine Aminotransferase 52 U/L (0-40); Albumin Level 4.6 g/dL (3.5-5.0); Alkaline Phosphatase 62 U/L (39-117); Anion Gap 12 (12-20); Aspartate Amino Transferase 29 U/L (5-37); Bilirubin Total 0.3 mg/dL (0.0-1.0); Blood Urea Nitrogen 12 mg/dL (9-16); Calcium 9.5 mg/dL (8.4-10.2); Carbon Dioxide 26 mmol/L (22-29); Chloride 106 mmol/L (96-108); Cholesterol 164 mg/dL (<200); Estimated Glomerular Filt Rate > 60; Glucose Random 90 mg/dL (60-115); HDL Cholesterol 34 mg/dL (>40); LDL Cholesterol Calculated 90 mg/dL (<100); Potassium 4.1 mmol/L (3.3-5.1); Sodium 140 mmol/L (135-145); Total Protein 7.9 g/dL (6.5-8.0); Triglycerides 200 mg/dL (<150)
[2023-09-15 04:09] LABS: HIV AB/AG Nonreactive (Nonreactive); HIV Num 1 0.04 S/CO (0.00-0.99); ~HepC Num1 0.22 S/CO (0.00-0.79); ~Hepatitis C Antibody Nonreactive (Nonreactive)
== END 2023-09-14 14:04 | disposition home or self-care (01) ==
LOC: HO.HHCL 14:03
PROVIDERS: Visit Provider Nurse Practitioner Family
DX: Z00.00 Encounter for general adult medical examination without abnormal findings (principal); M54.2 Cervicalgia
CPT/HCPCS: 36415; 80053; 80061; 83036; 86803; 87389

== ENCOUNTER 2023-10-15 08:56 | Outpatient (REF) | payer MEDICAID, SELFPAY ==
--- NOTE | ~2023-10-15 | XR_ITS ---
EXAMINATION: XR shoulder RT min 2V, XR clavicle RT CLINICAL INFORMATION: Reason for Exam M25.519 - Pain in unspecified shoulder COMPARISON: Right shoulder radiographs 01/26/2022 TECHNIQUE: Three views of the shoulder and one view of the clavicle. FINDINGS: No acute fracture or dislocation. Joint spaces are maintained without significant degenerative change. No soft tissue abnormality. XR/XR shoulder RT min 2V IMPRESSION: No acute osseous abnormality.
--- NOTE | ~2023-10-15 | XR_ITS ---
EXAMINATION: XR shoulder RT min 2V, XR clavicle RT CLINICAL INFORMATION: Reason for Exam M25.519 - Pain in unspecified shoulder COMPARISON: Right shoulder radiographs 01/26/2022 TECHNIQUE: Three views of the shoulder and one view of the clavicle. FINDINGS: No acute fracture or dislocation. Joint spaces are maintained without significant degenerative change. No soft tissue abnormality. XR/XR clavicle RT IMPRESSION: No acute osseous abnormality.
== END 2023-10-15 08:57 | disposition home or self-care (01) ==
LOC: HO.HOSX 08:56
PROVIDERS: Visit Provider Orthopaedic Surgery
DX: S43.101A Unspecified dislocation of right acromioclavicular joint, initial encounter (principal)
CPT/HCPCS: 20605; 73000; 73030; 99212; J0665; J1100

== ENCOUNTER 2023-10-15 11:46 | Outpatient (AMB) | payer MEDICAID, SELFPAY ==
--- NOTE | 2023-10-15 12:21 | A.OFFVIS_ITS ---
Vital Signs 10/15/23 12:22 Height 5 ft 8 in Weight 216 lb BMI 32.8 Intake Visit Reasons: ov-Rt shoulder pain Intake Note: Yohannes is a 33 year old male who presents today for a follow up of his right shoulder pain s/p AC joint dislocation. Injection was administered to the right shoulder by Robyn on 01/26/22 Allergies aspirin [ASA] Allergy (Mild, Verified 09/16/21 17:30) REDNESS, SWELLING HPI HPI ov-Rt shoulder pain: Details: Yohannes returns with right superior shoulder pain. He had an ACJ separation and injections in his AC joint have been helpful. The last one was helpful until recently. [facility] Medical History Shortness of breath Essential hypertension No known health problems Surgical History No pertinent past surgical history Family History Father No problems noted. Mother No problems noted. Social History Alcohol intake: never Patient Tobacco Use Status: Never used Tobacco Physical Exam Vital Signs: BMI result Body Mass Index 32.8 Extrem Other: ttp ACJ pain with cross body adduction Office Procedures Joint Injection/Drain Joint Injection/Drain Details: Injected 1 mL of Decadron and 1 mL 1% lidocaine and 1 mL of 0.25% Marcaine. Site was prepped using aseptic technique. Patient tolerated the procedure well. 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 He may follow up as needed if the injection is not entirely helpful. Orders: Orders XR shoulder RT min 2V 10/15/23 M25.519 - Pain in unspecified shoulder XR clavicle RT 10/15/23 S43.109A - Unspecified dislocation of unspecified acromioclavicular joint, initial encounter Coding Level of Care Code Est Pt Level 3 (57279) Diagnoses AC joint dislocation S43.109A CPT Codes Coding - Joint 5: 95163 - Acromioclavicular ([id number])
[2023-10-15 12:22] VITALS: BMI 32.8
== END 2023-10-15 12:44 | disposition home or self-care (01) ==
PROVIDERS: Visit Provider Orthopaedic Surgery
DX: S43.101A Unspecified dislocation of right acromioclavicular joint, initial encounter (principal)
CPT/HCPCS: 20605; 99213

== ENCOUNTER 2023-12-17 15:46 | Outpatient (REF) | payer SELFPAY ==
[2023-12-21 17:53] LABS: Lyme Abs Screen <0.90 index
== END 2023-12-17 15:47 | disposition home or self-care (01) ==
LOC: HO.HHCL 15:46
PROVIDERS: Visit Provider Emergency Medicine
DX: M54.2 Cervicalgia (principal)
CPT/HCPCS: 36415; 86617; 86618